=== PATIENT | male | born 2000 | race Hispanic/Latino ===

== ENCOUNTER 2021-04-14 06:42 | Day surgery (SDC) | payer MEDICAID, OTHER ==
[2021-04-12 10:56] LABS: BASOPHILS % (AUTO) 0.3 % (0.0-5.0); EOSINOPHILS % (AUTO) 1.1 % (0.0-8.0); HEMATOCRIT 47.5 % (42-54); LYMPHOCYTES % (AUTO) 29.9 % (21.0-51.0); MEAN CORPUSCULAR HEMOGLOBIN 27.2 pg (27.0-33.0); MEAN CORPUSCULAR HGB CONC 32.8 g/dL (32.0-36.0); MEAN CORPUSCULAR VOLUME 82.8 fL (80-100); MONOCYTES % (AUTO) 8.2 % (3.0-13.0); NEUTROPHILS % (AUTO) 60.2 % (40.0-77.0); PLATELET COUNT (AUTO) 236 K/uL (130-400); RED BLOOD CELL COUNT(AUTO) 5.74 MIL/uL (4.50-6.20); WHITE BLOOD COUNT (AUTO) 7.1 K/uL (4.8-10.8)
[2021-04-13 11:27] VITALS: BP 120/86
[2021-04-14] VITALS (14 sets, daily range): BP systolic 98–135; BP diastolic 45–96
[~2021-04-14] VITALS: Ht 185.4 cm; Wt 90.5 kg
[2021-04-14] MEDS ORDERED: CEFAZOLIN SODIUM 1 GM VIAL ONE (07:29)
[2021-04-14] MEDS ORDERED: LACTATED RINGERS 1000ML 1,000 ML IV ONE (07:29)
[2021-04-14] MEDS ORDERED: FENTANYL CITRATE PF 50 MCG/1 ML 2ML VIAL ONE (09:37)
[2021-04-14] MEDS ORDERED: PROPOFOL 10 MG/ML 20ML VIAL IV ONE (09:37)
[2021-04-14] MEDS ORDERED: LIDOCAINE PF 100MG/5ML (2%) SYRINGE 5ML ONE (09:37)
[2021-04-14] MEDS ORDERED: MIDAZOLAM HCL 1 MG/ML 2ML VIAL ONE (09:37)
[2021-04-14] MEDS ORDERED: ROCURONIUM 10MG/1ML SYR 10 MG/ML ML ONE (09:37)
[2021-04-14] MEDS ORDERED: SUCCINYLCHOLINE CHLORIDE 20 MG/ML 10 ML VIAL ONE (09:37)
[2021-04-14] MEDS ORDERED: NEOSTIGMINE 5MG/5ML SYR IV ONE (10:39)
[2021-04-14] MEDS ORDERED: GLYCOPYRROLATE 1 MG/5 ML SYRINGE ONE (10:39)
[2021-04-14] MEDS ORDERED: ACET1TAB25 PO (11:00)
[2021-04-14] MEDS ORDERED: CEPH500B PO (11:00)
[2021-04-14] MEDS ORDERED: KETOROLAC 30MG VIAL (30MG/ML) ONE (11:24)
== END 2021-04-14 12:12 | disposition home or self-care (01) ==
LOC: DAH 06:42
PROVIDERS: ATTEND Orthopaedic Surgery
DX: S83.271A Complex tear of lateral meniscus, current injury, right knee, initial encounter (principal); Z20.822 Contact with and (suspected) exposure to COVID-19; M94.261 Chondromalacia, right knee; X58.XXXA Exposure to other specified factors, initial encounter; Y93.89 Activity, other specified; Y92.89 Other specified places as the place of occurrence of the external cause; Z79.899 Other long term (current) drug therapy; Z98.890 Other specified postprocedural states
CPT/HCPCS: 29881; 36415; 80048; 85025; 87635; A4215; A4221; A4222; A4223; A4649; A4663; A5120; A6223; C9803; J0330; J0690; J1885; J2250; J2710; J3010; J3490 ×3; J7120 ×2; J2001; J2704